=== PATIENT | male | born 1975 | race African-American/Black ===

== ENCOUNTER 2018-12-09 13:44 | Outpatient (CLI) | payer BC | END 2018-12-09 14:11 | disposition home or self-care (01) | LOC: LAB 13:44 | DX: D64.89 Other specified anemias (principal); E11.9 Type 2 diabetes mellitus without complications; E78.2 Mixed hyperlipidemia; I10 Essential (primary) hypertension; E03.8 Other specified hypothyroidism; R97.20 Elevated prostate specific antigen [PSA]; R29.898 Other symptoms and signs involving the musculoskeletal system ==